=== PATIENT | female | born 1960 | race Caucasian/White ===

== ENCOUNTER → 2018-12-18 08:00 | Outpatient (CLI) | payer BC, SELFPAY ==
[2018-02-08 12:18] VITALS: BMI 30.5
--- NOTE | 2018-12-18 08:04 | BI_ITS ---
MAMMOGRAPHY - BILATERAL SCREENING REASON FOR EXAM: Female, 58 years old. Routine annual screening examination. PERTINENT HISTORY: Non-contributory. TECHNIQUE: Digital bilateral breast krissy (3D mammographic acquisition) in the CC and MLO projections. 2-D mediolateral oblique (MLO) and craniocaudad (CC) views of both breasts were obtained. CAD: Full Field Digital Mammography with Computer Added Detection was performed. COMPARISON: Comparison is made with prior study dated August 22, 2017 and August 20, 2016. FINDINGS: Breast Composition: There are scattered areas of fibroglandular density. There are no dominant masses or suspicious calcifications. Stable small benign-appearing bilateral axillary lymph nodes. No other significant abnormalities are identified. There has been no significant change since the prior study. BI/SCREENING MAMM (CAD), BILAT IMPRESSION: Stable bilateral screening mammogram. Yearly follow-up mammogram recommended. (A) ASSESSMENT CATEGORY: BIRADS Category 2: Benign. A letter regarding these results will be sent to the patient by the facility within 30 days. Approximately 10% of breast cancers are not detected by mammography. A normal mammogram should not delay biopsy of a clinically suspicious abnormality. [id number] Electronically Signed: Aaron Junior MD at 10:23 EST , Service support ,
--- NOTE | 2018-12-18 08:23 | BD_ITS ---
STUDY: DUAL ENERGY X-RAY ABSORPTIOMETRY / DXA REASON FOR EXAM: Female, 58 years old. The patient is postmenopausal. Loss of height. TECHNIQUE: Bone Mineral Density (BMD) measurements of lumbar spine and bilateral hips were obtained. COMPARISON: None. FINDINGS: Lumbar Spine (L1-L4): g/cm2 (0.946) / T-score (-1.9) / Z-score (-0.7) Findings are suggestive of osteopenia with a moderate fracture risk. Left Femur Total: g/cm2 (0.886) / T-score (-1.0) / Z-score (0.0) Left Femoral Neck: g/cm2 (0.756) / T-score (-2.0) / Z-score (-0.8) Right Femur Total: g/cm2 (0.877) / T-score (-1.0) / Z-score (-0.1) Right Femoral Neck: g/cm2 (0.785) / T-score (-1.8) / Z-score (-0.6) BD/Dexa Bone Density Study IMPRESSION: The patient is considered osteopenic as outlined below according to World Sumti Organization (WHO) criteria with a moderate fracture risk. Reference Information: The T-score is the number of standard deviations above or below the standard which is normal for young adults at their peak bone mineral density. The World Health Organization (WHO) interprets the T-scores as follows: Above -1 Normal bone density Between -1 and -2.5 Osteopenia Equal to / or below -2.5 Osteoporosis As a practical clinical guideline, osteopenia may be graded as follows: Mild -1 through -1.5 Moderate -1.6 through -2.0 Severe -2.1 through -2.4 The Z-score is the number of standard deviations above or below age-matched controls. A Z-score of less than -1.5 would be considered abnormal. References: 1. NIH Osteoporosis and Related Bone Diseases http://www.osteo.org 2. International Society for Clinical Densitometry http://www.iscd.org 3. National Osteoporosis Foundation http://www.nof.org Electronically Signed: Aaron Junior MD at 15:11 EST , Service support ,
== END ==
PROVIDERS: Family Provider Internal Medicine; PCP Internal Medicine; Referring Provider Obstetrics & Gynecology; Visit Provider Obstetrics & Gynecology
DX: N95.1 Menopausal and female climacteric states (principal); Z12.31 Encounter for screening mammogram for malignant neoplasm of breast
CPT/HCPCS: 77063; 77067; 77080

== ENCOUNTER → 2019-04-08 | Outpatient (CLI) | payer BC, SELFPAY ==
[2019-04-13 17:29] LABS: HPV Reflexed? NOT INDICATED
== END | disposition home or self-care (01) ==
LOC: LABSPEC 11:11
PROVIDERS: Visit Provider Obstetrics & Gynecology
DX: Z12.4 Encounter for screening for malignant neoplasm of cervix (principal)
CPT/HCPCS: 88175; G0145

== ENCOUNTER → 2020-01-29 | Outpatient (CLI) | payer BC, SELFPAY ==
[2020-01-29 10:29] LABS: Potassium 4.5 mmol/L (3.5-5.1)
== END | disposition home or self-care (01) ==
LOC: LABSPEC 10:09
PROVIDERS: Referring Provider Nurse Practitioner; Visit Provider Nurse Practitioner
DX: E87.5 Hyperkalemia (principal)
CPT/HCPCS: 84132

== ENCOUNTER → 2020-02-24 | Outpatient (CLI) | payer BC, SELFPAY ==
[2018-02-08 12:18] VITALS: BMI 30.5
--- NOTE | 2020-02-24 09:59 | BI_ITS ---
MAMMOGRAPHY - BILATERAL SCREENING REASON FOR EXAM: Female, 59 years old. Routine annual screening examination. PERTINENT HISTORY: Non-contributory. TECHNIQUE: Digital bilateral breast stefania (3D mammographic acquisition) in the CC and MLO projections. 2-D mediolateral oblique (MLO) and craniocaudad (CC) views of both breasts were obtained. CAD: Full Field Digital Mammography with Computer Added Detection was performed. COMPARISON: Comparison is made with prior study dated December 18, 2018 and August 22, 2017. FINDINGS: Breast Composition: There are scattered areas of fibroglandular density. There are no dominant masses or suspicious calcifications. Stable small benign-appearing bilateral axillary lymph nodes. No other significant abnormalities are identified. There has been no significant change since the prior study. BI/SCREEN MAMM (CAD) W/STEFANIA BILAT IMPRESSION: Stable bilateral screening mammogram. Yearly follow-up mammogram recommended. (A) ASSESSMENT CATEGORY: BIRADS Category 2: Benign. A letter regarding these results will be sent to the patient by the facility within 30 days. Approximately 10% of breast cancers are not detected by mammography. A normal mammogram should not delay biopsy of a clinically suspicious abnormality. [id number] Electronically Signed: Aaron Junior, at 11:07 EDT , Service support ,
== END | disposition home or self-care (01) ==
LOC: OPBI 09:56
PROVIDERS: PCP Nurse Practitioner; Referring Provider Nurse Practitioner; Visit Provider Nurse Practitioner
DX: Z12.31 Encounter for screening mammogram for malignant neoplasm of breast (principal)
CPT/HCPCS: 77063; 77067

== ENCOUNTER → 2020-06-21 | Outpatient (CLI) | payer BC, SELFPAY ==
[2018-02-08 12:18] VITALS: BMI 30.5
== END | disposition home or self-care (01) ==
LOC: LABSPEC 13:27
PROVIDERS: PCP Nurse Practitioner; Visit Provider Family Medicine Hospice and Palliative Medicine
DX: Z11.59 Encounter for screening for other viral diseases (principal)
CPT/HCPCS: 87635; 94799; U0003

== ENCOUNTER 2020-09-12 12:48 | Emergency (ER) | payer OTHER, BC, SELFPAY ==
[2020-09-12 12:49] VITALS: BP 126/76; PULSE 58; RESP 17; TEMP 36.7; O2SAT 100; BMI 27.6
--- NOTE | 2020-09-12 13:22 | RAD_ITS ---
STUDY: X-RAY - LEFT WRIST REASON FOR EXAM: Female, 59 years old. Fall, deformity TECHNIQUE: 3 view(s) of the wrist were obtained. COMPARISON: None. FINDINGS: There is a comminuted fracture of the distal radial metaphysis with evidence of a dorsal facing. Avulsion fracture of the ulnar styloid. Normal distal radioulnar articulation. Normal carpal bones. Normal carpal articulations. Normal carpometacarpal articulation of the thumb. Normal second through fifth carpometacarpal articulations. Normal visualized metacarpal bones. Soft tissue swelling. RAD/Wrist min 3 Views IMPRESSION: Comminuted fracture of the distal radial metaphysis with evidence of dorsal facing. Avulsion fracture of the ulnar styloid. Soft tissue swelling. Electronically Signed: Aaron Junior, at 14:02 EDT , Service support ,
[2020-09-12] MEDS: Bupivacaine Mpf 0.5% 30 ML VIAL INFILT (14:12)
--- NOTE | 2020-09-12 15:35 | RAD_ITS ---
STUDY: X-RAY - LEFT WRIST REASON FOR EXAM: Female, 59 years old. POST REDUCTION TECHNIQUE: 3 view(s) of the wrist were obtained. COMPARISON: 09/12/2020 at 1344 FINDINGS: Interval reduction of the Colles'' fracture the distal radius with near-anatomic alignment. Normal radiocarpal articulation. Normal distal radioulnar articulation. Normal carpal bones. Normal carpal articulations. Normal carpometacarpal articulation of the thumb. Normal second through fifth carpometacarpal articulations. Normal visualized metacarpal bones. Fiberglas cast obscures soft tissue and bony detail. RAD/Wrist min 3 Views IMPRESSION: Interval reduction of Colles'' fracture with near-anatomic alignment. Electronically Signed: Joe Capps MD at 15:56 EDT Tel , Service support ,
--- NOTE | 2020-09-12 15:48 | ED.DCSUM_ITS ---
History of Present Illness Chief Complaint: Fall Narrative: Patient presenting for evaluation secondary to mechanical fall left wrist injury. Patient reports that she was walking into work. She suffered a mechanical fall on outstretched arm. She did hit her head there is no loss of consciousness. She denies any visual changes numbness weakness nausea vomiting. She is not anticoagulated. She reports a moderate amount of pain in her left wrist as well as a minimal amount of pain in the small digit on her right hand. She is right-hand dominant. View of systems otherwise negative. Past Medical History - Allergies and Home Meds Allergies/Adverse Reactions: Allergies iodine Allergy (Verified 09/12/20 12:48) Unknown pollen extracts Allergy (Verified 09/12/20 12:48) Unknown povidone-iodine [From Betadine] Allergy (Verified 09/12/20 12:48) Unknown soap [From Betadine] Allergy (Verified 09/12/20 12:48) Unknown detergent Allergy (Uncoded 09/12/20 12:48) Unknown Primary Care Physician: Ngozi Linder CHIROPRACTIC PRACTICE MANAGER, CHIROPRACTIC PRACTICE MANAGER-C [Primary Care Provider] - Prior records reviewed: Yes Surgical History: noncontributory Smoking Status: Never smoker Review of Systems All systems negative except as indicated General: Denies: Chills, Fever, Sweats Eyes: Denies: Visual changes - bilaterally, Diplopia ENT: Denies: Rhinorrhea, Sore throat Cardiovascular: Denies: Chest pain, Palpitations Respiratory: Denies: Dyspnea, Cough, Dyspnea on exertion Gastrointestinal: Denies: Abdominal pain, Nausea, Vomiting, Diarrhea, Melena, Hematochezia Genitourinary: Denies: Dysuria, Hematuria, Frequency Musculoskeletal: Reports: Extremity Pain Skin: Denies: Rash, Wounds Neurological: Denies: Headache, Weakness, Numbness Physical Exam Vital Signs/Narrative: Vital Signs Temp Pulse Resp BP Pulse Ox 09/12/20 14:39 62 16 123/84 H 98 09/12/20 12:49 98.0 F 58 L 17 126/76 H 100 Inital Vital Signs reviewed: Yes Left Forearm: - - Deformity noted to the patient's left wrist. Normal sensation over all dermatomes. Normal pulses normal capillary refill. Limited range of motion of the wrist secondary to pain Right Hand: - - Minimal tenderness palpation of the small digit of the right hand with full range of motion no deformity. General: Well nourished, Well developed Head: Normocephalic, Atraumatic Eyes: Perrl, EOMI ENT: No Trauma, Moist Mucous Membranes Neck: Nontender, Full ROM Cardiovascular: Regular rate, Regular rhythm, No murmurs Respiratory: No distress, CTA bilaterally, Chest nontender Abdomen: Soft, Nontender, Nondistended, Normal bowel sounds Back: Nontender Skin: Normal color, No rash Neurological: Alert, Oriented x3, Cranial nerves II-XII grossly intact, Normal Strength, Normal Sensation Psychological: Normal affect Diagnostic/Tx/Re-eval - Medical Decision Making Patient presented secondary to a fall. She did hit her head but she does not meet any imaging criteria per the [place] head CT rules. Imaging of the patient's left wrist shows a displaced distal radius fracture that is intra- articular and an ulnar styloid fracture. This was reduced as noted in the procedure note. Patient requested referral to Dr. Solomon Procedures Procedure(s): Patient was verbally consented for hematoma block and closed reduction of the left wrist. Area was prepped via a alcohol pad. 21-gauge needle was utilized, blood was withdrawn, and 10 cc of bupivacaine was placed into the patient's fracture hematoma. There was good anesthesia. Traction and manipulation was then utilized, the patient was placed in a anterior posterior Ortho-Glass splint that was fabricated by the ED physician. Repeat radiographs show improved alignment. Patient tolerated this well. ED Disposition - Plan for ED Patient: Disposition: Home or Assisted Living Diagnosis: Left wrist fracture Instructions: ED WRIST FRACTURE General Prescriptions: Hydrocodone Bitart/Apap 5-325 [[place] 5MG-325MG] 1 tab PO Q6H PRN PRN 3 Days #12 tab PRN Reason: Pain Prescription Printed Referrals: Carlos Solomon DO [STAFF PHYSICIAN] - 3-5 Days
[2020-09-12 16:03] VITALS: BP 141/72; PULSE 64; RESP 15; O2SAT 97
== END 2020-09-12 16:22 | disposition home or self-care (01) ==
PROVIDERS: Emergency Provider Emergency Medicine; PCP Nurse Practitioner
DX: S52.572A Other intraarticular fracture of lower end of left radius, initial encounter for closed fracture (principal); S52.612A Displaced fracture of left ulna styloid process, initial encounter for closed fracture; W18.30XA Fall on same level, unspecified, initial encounter; Y93.01 Activity, walking, marching and hiking; Y92.89 Other specified places as the place of occurrence of the external cause; Y99.0 Civilian activity done for income or pay
CPT/HCPCS: 25605; 29125; 73110; 99283

== ENCOUNTER 2021-04-27 07:55 | Outpatient (CLI) | payer BC, SELFPAY ==
--- NOTE | 2021-04-27 07:59 | BI_ITS ---
MAMMOGRAPHY - BILATERAL SCREENING REASON FOR EXAM: Female, 60 years old. Routine annual screening examination. PERTINENT HISTORY: Non-contributory. TECHNIQUE: Digital bilateral breast stefania (3D mammographic acquisition) in the CC and MLO projections. 2-D mediolateral oblique (MLO) and craniocaudad (CC) views of both breasts were obtained. CAD: Full Field Digital Mammography with Computer Added Detection was performed. COMPARISON: Comparison is made with prior study dated 02/24/2020 and 12/18/2018. FINDINGS: Breast Composition: There are scattered areas of fibroglandular density. There are no dominant masses or suspicious calcifications. Stable small benign-appearing bilateral axillary lymph nodes. No other significant abnormalities are identified. There has been no significant change since the prior study. BI/SCRN MAMM (CAD)W/STEFANIA BILAT IMPRESSION: Stable bilateral screening mammogram. Yearly follow-up mammogram recommended. (A) ASSESSMENT CATEGORY: BIRADS Category 2: Benign. A letter regarding these results will be sent to the patient by the facility within 30 days. Approximately 10% of breast cancers are not detected by mammography. A normal mammogram should not delay biopsy of a clinically suspicious abnormality. [id number] Electronically Signed: Aaron Junior MD at 8:56 EDT , Service support ,
--- NOTE | 2021-04-27 08:25 | BD_ITS ---
STUDY: DUAL ENERGY X-RAY ABSORPTIOMETRY / DXA REASON FOR EXAM: Female, 60 years old. [id number]. The patient is postmenopausal. TECHNIQUE: Bone Mineral Density (BMD) measurements of lumbar spine and bilateral hips were obtained. COMPARISON: Comparison is made with prior examination dated 12/18/2018. FINDINGS: Lumbar Spine (L1-L4): g/cm2 (0.793) / T-score (-3.1) / Z-score (-1.7) Findings are suggestive of osteoporosis with a high fracture risk. Left Femur Total: g/cm2 (0.846) / T-score (-1.3) / Z-score (-0.2) Left Femoral Neck: g/cm2 (0.752) / T-score (-2.1) / Z-score (-0.7) Right Femur Total: g/cm2 (0.822) / T-score (-1.5) / Z-score (-0.4) Right Femoral Neck: g/cm2 (0.7-0) / T-score (-2.3) / Z-score (-0.9) The T-Scores on the most recent prior examination were: Lumbar Spine (L1-L4): There has been worsening of bone density since the previous examination. Left Femur Total: which represents a worsening of 4.5%. Right Femur Total: which represents a worsening of 6.3%. BD/Dexa Bone Density Study IMPRESSION: The patient is considered osteoporotic as outlined below according to World Sumit Organization (WHO) criteria with a high fracture risk. There has been worsening of bone density since the previous examination. Reference Information: The T-score is the number of standard deviations above or below the standard which is normal for young adults at their peak bone mineral density. The World Health Organization (WHO) interprets the T-scores as follows: Above -1 Normal bone density Between -1 and -2.5 Osteopenia Equal to / or below -2.5 Osteoporosis As a practical clinical guideline, osteopenia may be graded as follows: Mild -1 through -1.5 Moderate -1.6 through -2.0 Severe -2.1 through -2.4 The Z-score is the number of standard deviations above or below age-matched controls. A Z-score of less than -1.5 would be considered abnormal. References: 1. NIH Osteoporosis and Related Bone Diseases www osteo.org 2. International Society for Clinical Densitometry www iscd.org 3. National Osteoporosis Foundation www nof.org Electronically Signed: Aaron Junior MD at 15:50 EDT , Service support ,
== END 2021-04-27 23:59 | disposition home or self-care (01) ==
PROVIDERS: PCP Nurse Practitioner; Referring Provider Nurse Practitioner; Visit Provider Nurse Practitioner
DX: Z13.820 Encounter for screening for osteoporosis (principal); Z12.31 Encounter for screening mammogram for malignant neoplasm of breast
CPT/HCPCS: 77063; 77067; 77080

== ENCOUNTER → 2022-04-06 | Outpatient (CLI) | payer OTHER, SELFPAY ==
--- NOTE | 2022-04-06 09:11 | RAD_ITS ---
STUDY: X-RAY - PELVIS AND LEFT HIP REASON FOR EXAM: Female, 61 years old. DISCOMFORT OF LEFT GROIN TECHNIQUE: 3 views of the pelvis and hip. COMPARISON: None. FINDINGS: There is a non-specific bowel gas pattern. Normal visualized soft tissue structures. Normal bilateral iliac wings, sacroiliac joints and visualized sacrum. Normal bilateral superior and inferior pubic rami. Normal pubic symphysis. Normal bilateral ischial tuberosities. Normal visualized femoral head. Normal acetabulum. Normal hip joint. RAD/HIP, UNI W/ Pelvis 2-3 Views IMPRESSION: Normal x-ray examination of the pelvis and hip. Electronically Signed: Fuentes Carrion MD at 23:43 EDT ,
== END | disposition home or self-care (01) ==
LOC: MTRAD 09:09
PROVIDERS: PCP Internal Medicine; Referring Provider Internal Medicine; Visit Provider Internal Medicine
DX: R10.32 Left lower quadrant pain (principal)
CPT/HCPCS: 73502

== ENCOUNTER 2022-05-18 09:00 | Outpatient (RCR) | payer OTHER, SELFPAY ==
--- NOTE | 2022-04-24 08:14 | HP.PTEVAL_ITS ---
Patient's Visit Information JOSE LYON is a 61 year old F referred to Physical Therapy by Dr. Ny Alford, DO with a diagnosis of L greater trochanter bursitis/IT band pain, L groin pain. Date of Evaluation: 04/24/22 Physical Therapist: BARBARA Bright - Visit Plan Frequency: 2x /Week Duration: 6 Weeks Plan: 2X/ week for 4-6 weeks for Neutral spine core stability, stretching of the L spine in neutral spine, stretching of the L piriformis, postural exercises with HEP and modalities if needed. HEP: PT, PT with bug with legs, L piriformis stretch in supine, discussed HS stretch and SKC stretch that she is already doing at home to not go into pain. - Subjective Last April pt had a bone density scan with osteoporosis and degeneration around L4-L5 and then around Aug started to have some LBP and since then it has been a problem. She has been taken it easy. She does Yoga. She is losing flexability and before that she was extremely flexible. She started Chiropractor in . L leg is slightly shorter than R leg. Alignment was good. She was still having some back spasms upon standing when seated and the first few steps... she can always count on spams in [place]. Once she is going she can walk 5 miles with the [facility] shoes on without any problems. She did 1X/ week massage therapy in January and February and saw mild help... only helped that day. She had an appt with Dr Alford and then she prescribed her with generic celebrex and helps a little. She is also taking some herbs to help with her muscle. She is trying to refrain from taking Tylenol. In Nov and Dec she needed to take IBPROF. Dr Alford wrote the order for PT. In February she started to have some pain in the L groin and felt like losing more mobility and issues with balance. She has no N&T. She is needing more sleep due to fatigue. She can not get comforterable. SHe is now a back sleeper and can sleep or. X-ray of the L hip. - Pain Back pain Pain Intensity (Out of 10): 0 Pain Intensity Range: 2, 3 Comment: Walking L groin pain Pain Intensity (Out of 10): 2 Comment: with walking - Objective Gait: pt walks with decreased trunk rotation and smaller steps. LE MMT: B hip flex, knee ext, knee flex, hip abd 4/5 B. Pt has increase pain with end range stretching of her L hamstring, and L piriformis (L tighter than the R). Good IT band flexibility B but slight increase pain on the L. Slight pain with piriformis palpation on the L. Posture: pt sits with upright posture during treatment session today. Pt has a good understanding of PT with ab brace. - Balance/Special Test Scores Lower Extremity Functional Score: 43 - Goals Goal 1:: I HEP Goal Time Frame: 4-6 Weeks Goal 2:: Increase core stability to be able to complete 3 X 20 bug without pain and being able to hold the PT without losing it Goal Time Frame: 4-6 Weeks Goal 3:: Decrease back and groin pain to 1/10 with sit to stand transfers and with 50% less frequency. - Rehabilitation Potential Rehabilitation Potential: Good - Anticipated Interventions Patient/Client Instruction: Educate patient on: Condition, Plan of Care For the Purpose of:: To decrease pain, To increase ROM, To improve nutrient delivery to tissue, To improve muscle performance and motor function, To improve ability to perform ADL's, To increase tolerance to activity/condition/position, To improve performance and independence with ADL's, To decrease level of supervision to perform tasks, To improve ability of physical actions for home/community/work/leisure, To improve gait and locomotor functions, To improve health of tissue, To decrease soft tissue restriction, To increase flexibility/ROM, To improve balance Therapeutic Exercise to Include: Strength training, Postural training, Flexib ilty training, Gait and locomotor training, Neuromotor development, Active ROM, Dynamic Lumbar Stabilization, Scapular Strength/Stabilization For the Purpose of:: To decrease pain, To increase ROM, To improve nutrient delivery to tissue, To increase oxygenation perfusion, To improve ability to perform ADL's, To increase tolerance to activity/condition/position, To improve performance and independence with ADL's, To decrease level of supervision to perform tasks, To improve ability of physical actions for home/community/work/leisure, To improve gait and locomotor functions, To improve health of tissue, To decrease soft tissue restriction, To increase flexibility/ROM, To improve endurance, To improve balance, To improve safety with gait Cryotherapy (ice pack, ice massage): Yes Thermo therapy (hot pack): Yes For the Purpose of:: To decrease pain, To increase ROM, To improve nutrient delivery to tissue Thank you for the opportunity to evaluate your patient. For Medicare and Medicare HMO plans, please review the plan of care and approve it. It will need to be FAXED BACK to us at [phone] for Medicare purposes. For Medicare only, by signing this I certify the plan of care. Please let me know if there are questions or concerns regarding this plan of ca re. Physician Signature: Date:
--- NOTE | 2022-08-20 10:23 | HP.PTDCNRP_ITS ---
JOSE LYON was seen in my office for initial evaluation on 04/24/22. The following Plan of Care was established for this patient: Initial Frequency: 2x /Week Initial Duration: 6 Weeks Patient/Client Instruction: Educate patient on: Condition, Plan of Care For the Purpose of:: To decrease pain, To increase ROM, To improve nutrient delivery to tissue, To improve muscle performance and motor function, To improve ability to perform ADL's, To increase tolerance to activity/condition/position, To improve performance and independence with ADL's, To decrease level of supervision to perform tasks, To improve ability of physical actions for home/community/work/leisure, To improve gait and locomotor functions, To improve health of tissue, To decrease soft tissue restriction, To increase flexibility/ROM, To improve balance Therapeutic Exercise to Include: Strength training, Postural training, Flexibilty training, Gait and locomotor training, Neuromotor development, Active ROM, Dynamic Lumbar Stabilization, Scapular Strength/Stabilization For the Purpose of:: To decrease pain, To increase ROM, To improve nutrient delivery to tissue, To increase oxygenation perfusion, To improve ability to perform ADL's, To increase tolerance to activity/condition/position, To improve performance and independence with ADL's, To decrease level of supervision to perform tasks, To improve ability of physical actions for home/community/wor k/leisure, To improve gait and locomotor functions, To improve health of tissue, To decrease soft tissue restriction, To increase flexibility/ROM, To improve endurance, To improve balance, To improve safety with gait Cryotherapy (ice pack, ice massage): Yes Thermo therapy (hot pack): Yes For the Purpose of:: To decrease pain, To increase ROM, To improve nutrient delivery to tissue This patient was last seen in our office 05/18/22. Pertinent comments regarding their Physical therapy will appear below: JENNIFER PT. Pt was to call in 2 weeks to report her HEP progress and she did not do that and will be discharged at this time. At this point I will be discontinuing this patient from physical therapy. I would be happy to see this patient again in the future if found appropriate by the physician. Thank you! Angelica Cunha, MPT Balance/Gait/Functional tests - Balance/Special Test Scores Lower Extremity Functional Score: 52
== END 2022-05-18 19:00 | disposition home or self-care (01) ==
LOC: PT 09:00
PROVIDERS: PCP Internal Medicine; Referring Provider Internal Medicine; Visit Provider Internal Medicine
DX: M76.32 Iliotibial band syndrome, left leg (principal)
CPT/HCPCS: 97110; 97161

== ENCOUNTER → 2022-05-30 | Outpatient (CLI) | payer OTHER, SELFPAY ==
--- NOTE | 2022-05-30 07:04 | BI_ITS ---
MAMMOGRAPHY - BILATERAL SCREENING REASON FOR EXAM: Female, 61 years old. Routine annual screening examination. PERTINENT HISTORY: Non-contributory. TECHNIQUE: Digital bilateral breast stefania (3D mammographic acquisition) in the CC and MLO projections. 2-D mediolateral oblique (MLO) and craniocaudad (CC) views of both breasts were obtained. CAD: Full Field Digital Mammography with Computer Added Detection was performed. COMPARISON: Comparison is made with prior study dated 04/27/2021 and 02/24/2020. FINDINGS: Breast Composition: There are scattered areas of fibroglandular density. There are no dominant masses or suspicious calcifications. Stable small benign-appearing bilateral axillary No other significant abnormalities are identified. There has been no significant change since the prior study. BI/SCRN MAMM (CAD)W/STEFANIA BILAT IMPRESSION: Stable bilateral screening mammogram. Yearly follow-up mammogram recommended. (A) ASSESSMENT CATEGORY: BIRADS Category 2: Benign. A letter regarding these results will be sent to the patient by the facility within 30 days. Approximately 10% of breast cancers are not detected by mammography. A normal mammogram should not delay biopsy of a clinically suspicious abnormality. [id number] Electronically Signed: Aaron Junior MD at 8:23 EDT ,
== END | disposition home or self-care (01) ==
LOC: OPBI 07:02
PROVIDERS: PCP Internal Medicine; Referring Provider Nurse Practitioner; Visit Provider Nurse Practitioner
DX: Z12.31 Encounter for screening mammogram for malignant neoplasm of breast (principal)
CPT/HCPCS: 77063; 77067

== ENCOUNTER → 2023-09-03 | Outpatient (CLI) | payer OTHER, SELFPAY ==
--- NOTE | 2023-09-03 07:59 | BI_ITS ---
MAMMOGRAPHY - BILATERAL SCREENING REASON FOR EXAM: Female, 62 years old. Routine annual screening examination. PERTINENT HISTORY: Occasional right breast tenderness. TECHNIQUE: Digital bilateral breast stefania (3D mammographic acquisition) in the CC and MLO projections. 2-D mediolateral oblique (MLO) and craniocaudad (CC) views of both breasts were obtained. CAD: Full Field Digital Mammography with Computer Added Detection was performed. COMPARISON: Comparison is made with prior study dated May 30, 2022 and April 27, 2021. FINDINGS: Breast Composition: The breasts are almost entirely fatty. There are no dominant masses or suspicious calcifications. Stable small benign-appearing bilateral axillary lymph nodes. No other significant abnormalities are identified. There has been no significant change since the prior study. BI/SCRN MAMM (CAD)W/STEFANIA BILAT IMPRESSION: Stable bilateral screening mammogram. Yearly follow-up mammogram recommended. (A) ASSESSMENT CATEGORY: BIRADS Category 2: Benign. A letter regarding these results will be sent to the patient by the facility within 30 days. Approximately 10% of breast cancers are not detected by mammography. A normal mammogram should not delay biopsy of a clinically suspicious abnormality. [id number] Electronically Signed: Aaron Junior MD at 14:48 EDT ,
--- NOTE | 2023-09-03 08:14 | BD_ITS ---
STUDY: DUAL ENERGY X-RAY ABSORPTIOMETRY / DXA REASON FOR EXAM: Female, 62 years old. M81.0 TECHNIQUE: Bone Mineral Density (BMD) measurements of lumbar spine and bilateral hips were obtained. COMPARISON: Comparison is made with prior study dated April 27, 2021. FINDINGS: Lumbar Spine (L1-L4): g/cm2 (0.799) / T-score (-2.3) / Z-score (-0.5) Findings are suggestive of osteopenia with a high fracture risk. Left Femur Total: g/cm2 (0.749) / T-score (-1.6) / Z-score (-0.4) Left Femoral Neck: g/cm2 (0.593) / T-score (-2.3) / Z-score (-0.8) Right Femur Total: g/cm2 (0.749) / T-score (-1.6) / Z-score (-0.4) Right Femoral Neck: g/cm2 (0.594) / T-score (-2.3) / Z-score (-0.8) The T-Scores on the most recent prior examination were: Lumbar Spine (L1-L4): There has been improvement of bone density since the previous examination. Left Femur Total: which represents a worsening of 4.5. Right Femur Total: which represents a worsening of 1.6%. BD/Dexa Bone Density Study IMPRESSION: The patient is considered osteopenic as outlined below according to World Sumit Organization (WHO) criteria with a high fracture risk. There has been worsening of bone density since the previous examination. Reference Information: The T-score is the number of standard deviations above or below the standard which is normal for young adults at their peak bone mineral density. The World Health Organization (WHO) interprets the T-scores as follows: Above -1 Normal bone density Between -1 and -2.5 Osteopenia Equal to / or below -2.5 Osteoporosis As a practical clinical guideline, osteopenia may be graded as follows: Mild -1 through -1.5 Moderate -1.6 through -2.0 Severe -2.1 through -2.4 The Z-score is the number of standard deviations above or below age-matched controls. A Z-score of less than -1.5 would be considered abnormal. References: 1. NIH Osteoporosis and Related Bone Diseases www osteo.org 2. International Society for Clinical Densitometry www iscd.org 3. National Osteoporosis Foundation www nof.org Electronically Signed: Aaron Junior MD at 8:40 EDT ,
== END | disposition home or self-care (01) ==
LOC: OPBI 07:57
PROVIDERS: PCP Internal Medicine; Referring Provider Internal Medicine; Visit Provider Internal Medicine
DX: Z12.31 Encounter for screening mammogram for malignant neoplasm of breast (principal); M81.0 Age-related osteoporosis without current pathological fracture
CPT/HCPCS: 77063; 77067; 77080

== ENCOUNTER 2024-04-07 15:28 | Emergency (ER) | payer OTHER, SELFPAY ==
[2024-04-07] VITALS (8 sets, daily range): BP systolic 113–155; BP diastolic 77–110; PULSE 57–92; RESP 16–18; TEMP 36.1; O2SAT 99–100
--- NOTE | 2024-04-07 15:35 | RAD_ITS ---
STUDY: X-RAY - LEFT WRIST REASON FOR EXAM: Female, 63 years old. Trauma TECHNIQUE: 2 view(s) of the wrist were obtained. COMPARISON: None. FINDINGS: There are acute obliquely oriented fractures through the distal radial and ulnar shafts with separation, overlapping and volar angulation of fracture fragments.. There also appears to be an old unfused fracture of the ulnar styloid. Normal radiocarpal articulation. Normal distal radioulnar articulation. Normal carpal bones. Normal carpal articulations. Degenerative changes of the carpometacarpal articulation of the thumb. Normal second through fifth carpometacarpal articulations. Normal visualized metacarpal bones. The soft tissue structures are unremarkable. RAD/Wrist 2 Views IMPRESSION: Acute displaced angulated fractures of the distal radial and ulnar shafts. Electronically Signed: Adonis Joel MD at 16:23 EDT ,
[2024-04-07] MEDS: Ondansetron 4 MG/2 ML Vial IV (16:10)
--- NOTE | 2024-04-07 16:10 | RAD_ITS ---
STUDY: X-RAY - RIGHT WRIST REASON FOR EXAM: Female, 63 years old. TRAUMA TECHNIQUE: 3 view(s) of the wrist were obtained. COMPARISON: None. FINDINGS: There is an acute impacted fracture of the distal radial shaft with overlapping and mild volar angulation of fracture fragments. There is also acute fracture of the ulnar styloid with mild separation of fracture fragments. Normal radiocarpal articulation. Normal distal radioulnar articulation. Normal carpal bones. Normal carpal articulations. Normal carpometacarpal articulation of the thumb. Normal second through fifth carpometacarpal articulations. Normal visualized metacarpal bones. Mild diffuse soft tissue swelling.. RAD/Wrist min 3 Views IMPRESSION: Acute Colles'' fracture of the right wrist Electronically Signed: Adonis Joel MD at 16:36 EDT ,
--- NOTE | 2024-04-07 16:10 | RAD_ITS ---
STUDY: X-RAY - LEFT ANKLE REASON FOR EXAM: Female, 63 years old. TRAUMA TECHNIQUE: 3 view(s) of the ankle. COMPARISON: None. FINDINGS: Normal visualized distal tibia and fibula. Normal medial and lateral malleoli. Normal tibiotalar articulation and ankle mortise. Normal visualized talus. Small plantar calcaneal spur. The visualized subtalar, talonavicular, calcaneocuboid and tarsal articulations are normal. There is soft tissue swelling overlying the lateral malleolus. RAD/Ankle min 3 Views IMPRESSION: Lateral malleolus sprain. No acute fracture or dislocation Electronically Signed: Adonis Joel MD at 16:37 EDT ,
[2024-04-07] MEDS: morphine 8 MG/ML Syringe 6 MG IV ×3 (16:11→18:34)
--- NOTE | 2024-04-07 16:12 | ED.RN ---
This RN spoke with [facility] and the [facility] to let her know patient will need a drug and alcohol testing but will not be able to complete this until she is medically cleared. This RN informed her patient may need sedation and possible transfer to another facility before she is able to do testing.
--- NOTE | 2024-04-07 16:16 | EDS_ITS ---
HPI History of Present Illness HPI Narrative: Tripped and fell at work injuring both wrists and her left ankle. No head injury. No LOC. Chief Complaint: Upper Extremity Injury Informant: patient Occured/Mechanism Mechanism/Context: Yes injury and Yes blunt trauma Onset/Context/Timing Onset: Today Timing: Continuous Quality of Pain: Sharp Current Severity: Severe Maximum Severity: Severe Associated Symptoms Associated Symptoms: Positive for Loss of Funtion; Negative for Parasthesia or Weakness Narrative Narrative: 58-year-old female tripped and fell at work injuring both wrists with an open fracture of her left wrist and a prior fracture to the left wrist but did not require surgery. And also her left ankle. Tetanus Immunization: 5-10 years Prior similar symptoms: Yes Recent Illness/Hospitalization: No PFSH PFSH Medical History Anemia Home Medications ?Medication ?Instructions ?Recorded ?Last Taken ?Type Ashwaganda 09/21/13 09/21/13 History ascorbic acid (vitamin C) 500 mg mg PO 02/08/18 Unknown History capsule cholecalciferol (vitamin D3) 25 1,000 unit PO ONCE 02/08/18 Unknown History mcg (1,000 unit) capsule ferrous sulfate 325 mg (65 mg 325 mg PO TID 02/08/18 Unknown History iron) tablet (iron) multivitamin 1 cap PO QAM 02/08/18 Unknown History red yeast rice 600 mg capsule 600 mg PO QDAY 02/08/18 Unknown History vitamin B12 0.5 mg-folic acid 1 mg 1 tab PO QDAY 02/08/18 Unknown History tablet Allergy/AdvReac Type Severity Reaction Status Date / Time Environmental Allergies: Allergy Unknown NEEDS Verified 04/07/24 15:30 Uncoded FOLLOW-UP iodine Allergy Unknown Verified 04/07/24 15:30 pollen extracts Allergy Unknown Verified 04/07/24 15:30 povidone-iodine (From Allergy Unknown Verified 04/07/24 15:30 Betadine) soap (From Betadine) Allergy Unknown Verified 04/07/24 15:30 Social History (Updated 04/07/24 @ 16:24 by Elizabeth Leonard) housing: house Smoking Status: Never smoker alcohol intake: current alcohol intake frequency: a few times a week Alcohol type: beer and wine ROS ROS ED ROS Narrative Denies recent illness. Review of Systems ROS Unobtainable: Denies due to encephalopathy Constitutional Constitutional ED: Denies difficulty sleeping Eyes Eyes: Denies blurry vision ENT ENT ED: Denies dental pain Cardiovascular Cardiovascular: Denies abdominal pain Respiratory/Chest Respiratory/Chest: Denies chest congestion Gastrointestinal Gastrointestinal: Denies dry heaves Musculoskeletal Musculoskeletal: Denies difficulty walking Integumentary Denies change in hair Neurologic Neurologic: Denies abnormal speech Psychiatric Psychiatric: Denies confusion Endocrine Endocrinology: Denies cold intolerance Hematologic/Lymphatic Hematologic/Lymphatic: Denies lymphadenopathy Allergic/Immunologic Allergic/Immunologic ED: Denies mouth swelling EXAM Physical Exam Narrative Exam Narrative: 63-year-old female vital signs stable afebrile. She is sitting upright in bed. H EENT exam pupils round react to light. No signs of trauma. Neck nontender. Trachea midline. Back nontender. Lungs clear to auscultation. Heart regular rhythm rate about 60 no murmur. Chest wall and ribs nontender. Abdomen soft nontender. Lower extremities full range of motion. Mild tenderness swelling left lateral ankle. Dorsi and plantarflexion intact. Medial malleolus nontender. Achilles tendon intact. Both knees and hips are nontender. She has tenderness to her right wrist with no deformity suspect fracture. Skin is closed. Right hand is neurovascular intact with touch sensation cap refill. Right elbow upper arm and shoulder nontender. Left shoulder upper arm and elbow are nontender. Distal left forearm is an open fracture. Deformity. Palpable radial pulse. Able to wiggle her fingers minimally. Normal touch sensation. Neurologically she is awake alert with no focal motor deficits. Const Vital Signs: 04/07/24 15:28 Temperature 97 F L Temperature Source Temporal Pulse Rate 57 L Respiratory Rate 18 Blood Pressure 113/77 Blood Pressure Mean 89 Pulse Ox 100 Oxygen Delivery Method Room Air Positive well nourished, well developed, alert, oriented x3, no apparent distress, average body habitus, no limitations and healthy appearing; Negative for obese, cachectic, contractures or unkempt General Appearance ED: active, cooperative, comfortable, well kempt and well developed; Negative for unkempt, cachectic or contractures Nutritional Appearance: Negative for cachectic or obese HEENT Reports normocephalic and head/scalp atraumatic normocephalic Face and Sinus: normal facial exam Nose: external nose normal External Ear: external ears normal Eyes PERRL, EOMs intact bilaterally, conjunctivae normal and no scleral icterus General Eye ED: Yes normal appearance of both eyes Pupil: PERRL EOM: EOM abnormal Neck full ROM, No nuchal rigidity, no lymphadenopathy, supple, no meningeal signs, no JVD, No thyroid normal, No nodes and no carotid bruits Lymph Lymphatic: no lymphadenopathy noted and no lymphedema noted; Negative for lymphedema or lymphadenopathy Chest Wall inspection of chest normal Resp normal respiratory effort, normal air movement, no retractions, no use of accessory muscles, clear to auscultation bilaterally and percussion normal Effort and Inspection: able to speak in complete sentences Auscultation: clear to auscultation bilaterally Cardio regular rate, regular rhythm, S1 normal heart sound, S2 normal heart sound, no murmurs, no rub, no gallops, no clicks and peripheral pulses 2+ throughout; Negative for diaphoretic Rate: regular rate Rhythm: regular rhythm Heart Sounds: S1 normal and S2 normal GI normal to inspection, nondistended, normoactive bowel sounds, soft to palpation, non-tender, non-distended, no masses and no bruits Back/Spine no CVA tenderness, normal ROM, normal to inspection, thoracic and lumbar spine normal to inspection and no thoracic nor lumbar tenderness Extremity Negative for normal to inspection or full ROM Extremity Narrative: Right wrist tender and deformed. Skin close suspect fracture. Left wrist open fracture with deformity. Radial pulses intact. Touch sensation about the fingertips intact. Left lower extremity the ankle lateral malleolus is tender and swollen. No deformity. Normal range of motion with flexion extension left ankle. Achilles tendon intact. Able to wiggle her toes. Normal touch sensation DP pulse. Neuro oriented x3, CN's II-XII intact bilaterally, moves all extremities, no focal motor deficits and no sensory deficits noted Eduin Coma Scale: document GCS findings Spontaneous Obeys Commands Oriented 15 Sensorium / Orientation: awake, alert, oriented to person, oriented to place and oriented to time; Negative for orientation impaired, confused or lethargic Psych mental status grossly normal, thought process normal, cooperative, affect normal, speech normal and activity/motor behavior normal Appearance: Negative for unkempt Skin no rashes or lesions noted Skin Narrative: Open fracture left wrist. Bone sticking out past the skin. MDM MDM MDM Narrative Medical decision making narrative: 63-year-old female fell at work causing an open left wrist fracture, suspected right wrist fracture and the left ankle sprain suspected. X-rays being obtained. IV morphine and Zofran for pain. She was given a second dose of morphine. She will need the left wrist reduced and splinted. Possibly the right. She will have that done through procedural sedation. We do not have orthopedics on-call today. With the open fracture she will need to be transferred. All rings have been taken off her hands. She will be treated with Ancef. Last tetanus shot was between 5 and 10 years ago. Patient was initially treated with 6 mg of morphine and Zofran. Eventually received 6 mg more morphine and a third dose of 6 mg more morphine. She also had a total of 160 mg of propofol for the procedural sedation, reduction and splinting of both wrists. Currently at 5:50 PM she is awake alert. Awaiting transfer to [facility]. She had to be transferred due to no orthopedic physician on-call today and she has an open fracture of the left wrist that I suspect will need to be washed out and fixed. History & Record Review Discussion w/independent historian: Patient Additional record(s) reviewed:: Prior inpatient record, Prior outpatient record, Prior ED visit and Prior labs Radiography Diagnostic Testing: Left wrist x-ray 3 views interpreted myself shows a comminuted open fracture of the left wrist involving the distal third of the radius and ulna both displaced 100%. And shortened. Also a third fracture at the distal end of the ulna. Right wrist x-ray, 3 views interpreted by myself shows a distal radius fracture dorsally displaced. Also an ulnar styloid fracture. Left ankle x-ray shows soft tissue swelling lateral malleolus. No fracture. 3 views. Interpreted by myself. Procedures Upper Extremity Splints Upper Extremity Splint: Orthoglass Splint Fabrication: Fabricated Location: Right Procedural Sedation 1 (Initial Baseline): Consent Signed: Yes Any Problems With Anesthesia: No You/Your family experience fever (hyperthermia) w/anesthesia: No Sedation medication: Propofol Dose: 160 Total Moderate Sedation Units: 20 Maliampati Score: Class II ASA Classification: II Comment:: Patient treated with propofol. Initially 60 mg. And 40 more. Left wrist is reduced. The bone was reduced through the open fracture. She was placed in a short arm well-padded, Ortho-Glass fabricated splint by myself. That was on the left. Right wrist closed distal radius and ulnar styloid fracture. Treated with 60 more propofol. Placed in a well-padded, short arm Ortho-Glass splint. She tolerated both splints well. She awoke from procedural sedation awake alert and talking doing well. I did not get postreduction films simply because she is being transferred to [facility] and they are going to take her to the OR to washout the open fracture of the left wrist. They will get additional x-rays there. Other Procedures Procedure(s): Patient had 2 splints. 1. Left open wrist fracture short arm AP well-padded Ortho-Glass fabricated splint. 2. Right wrist closed fracture distal radius and ulnar styloid. Short arm AP well-padded Ortho-Glass fabricated splint by me. Critical Care Time Critical Care Time: Yes Critical care time (excluding procedures): 30-74 minutes, Including time spent:, Discussing w/Patient &/or Family/Outside Sales Account Representative, Discussing w/Consultants, Arranging Admission or Transfer, Performing Direct Patient Care at Bedside and - (40 minutes.) Discharge Plan Triage Chief Complaint: Upper Extremity Injury ED Provider: Shakeel Harris Dx/Rx/DC Orders Clinical Impression: Fall, Open fracture of left wrist, Closed fracture of right wrist, Left ankle sprain, Encounter related to worker's compensation claim Prescriptions: No Action multivitamin capsule 1 cap PO QAM cholecalciferol (vitamin D3) 1,000 unit capsule 1,000 unit PO ONCE ascorbic acid (vitamin C) 500 mg capsule PO ferrous sulfate [iron] 325 mg (65 mg iron) tablet 325 mg PO TID vitamin [id number] acid 0.5-1 mg tablet 1 tab PO QDAY red yeast rice 600 mg capsule 600 mg PO QDAY Ashwaganda Patient Comments: OTC MEDICATION Primary Care Provider: Ny Alford Referrals: Ny Alford DO [Primary Care Provider] - Print Language: Australian Disposition Disposition: Acute Care Hospital
[2024-04-07] MEDS: Cefazolin 1 GM/50 ML BAG IV (16:31)
--- NOTE | 2024-04-07 18:20 | RAD_ITS ---
STUDY: X-RAY - LEFT WRIST REASON FOR EXAM: Female, 63 years old. post reduction left wrist TECHNIQUE: 3 view(s) of the wrist were obtained. COMPARISON: April 07, 2024 4:08 PM FINDINGS: Films obtained status post closed reduction and casting of distal radial and ulnar fractures] demonstrated acute displaced fractures of the distal radial and ulnar shafts with persistent displacement of the fracture fragments but in more near-anatomic alignment and position RAD/Wrist min 3 Views IMPRESSION: Status post closed reduction and casting of distal radial and ulnar fractures Electronically Signed: Adonis Joel MD at 19:00 EDT Reading Location ID and State: [facility] / ID Tel , Service support ,
--- NOTE | 2024-04-07 18:21 | ED.RN ---
Due to a glitch in the [employer] EMR system, the preprocedural, procedural and post procedural documentation was lost. As well as the MAR documentation. Dr. Harris administered a total on 160mg of Diprivan IV during the procedural. The preprocedure, procedural and post procedural document was entered in per the best of my recollection.
== END 2024-04-07 18:25 | disposition short-term general hospital (02) ==
PROVIDERS: Emergency Provider Emergency Medicine; PCP Internal Medicine; Visit Provider Emergency Medicine
DX: S52.502B Unspecified fracture of the lower end of left radius, initial encounter for open fracture type I or II (principal); S93.492A Sprain of other ligament of left ankle, initial encounter; S52.531A Colles' fracture of right radius, initial encounter for closed fracture; S52.232B Displaced oblique fracture of shaft of left ulna, initial encounter for open fracture type I or II; W01.0XXA Fall on same level from slipping, tripping and stumbling without subsequent striking against object, initial encounter; Y99.0 Civilian activity done for income or pay
CPT/HCPCS: 25685; 29125; 73100; 73110; 73610; 96365; 96366; 96375; 96376; 99152; 99284; J7030; A4216; J2405

== ENCOUNTER 2024-07-14 07:30 | Outpatient (RCR) | payer OTHER, SELFPAY ==
--- NOTE | 2024-05-15 09:21 | HP.OTEVAL_ITS ---
Patient's Visit Information Visit Information Visit Information: JOSE LYON is a 63 year old F, referred to Occupational Therapy by JEREL RYAN, with a diagnosis of open fracture of shaft of L radius with ulna, closed fracture of distal R r. Date of Evaluation: 05/15/24 Occupational Therapist: Merna Day Subjective Subjective: pt with open fx of L ulna, L radius, R radius following fall at work. closed reduction in ER for L ulna as this was an open fracture and transferred to [facility] in [place] for ORIF. pt with plate in L radius and pinned the L ulna, top of R radius also fractured and plate was placed in R radius. date of sx 04/08/2024, DOI 04/07/24. s/p 5 weeks 2 days. 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 pt is able to type, but is not back to work yet. difficulty to pronate with L forearm which is causing her to compensate at elbow when typing for proper positioning. possibly starting back next Saturday at half days. is able to care for herself at home at a slowed pace. pt lives alone however partner has been able to help her as he lives close. max difficulty to open twist tops on bottles. allergic to adhesives Pain R wrist: Current Pain Intensity: 0 Pain Intensity Range: 5 L wrist: Current Pain Intensity: 0 Pain Intensity Range: 5 Objective Objective/Observation: mild redness noted at distal and proximal ends of scar on R radius however pt stating she notices festering stitch 3 days ago and she removed them herself and has applied antibiotic ointment per dr recommendation and has been healing up without increased pain. pt reporting increased sensitivity along R radius scar as compared to both scars on L. pt tolerating scar mtg techniques well. ROM Shoulder: WFL Elbow: WFL Forearm: R pro 70 sup 85, L pro 60 sup 70 Wrist: R WE 45 [address], L WE 55 [address]F [address] 15 CMC: WFL MP: WFL IP: WFL Radial Abduction: WFL Palmar Abduction: WFL Opposition: B 10 Strength Pool Installer: R 7#, L 20# Lateral Pinch: R 9#, L 12# Tripod Pinch: R 4#, L 8# Nine Hole Peg Right: 18 Left: 20 In-Hand Manipulation Finger to Palm Translation: Mild - Right and Normal - Left Palm to Finger Translation: Mild - Right and Normal - Left Quick DASH-Disab of Arm,Shoulder& Hand Quick DASH Score: 72.5000 Goals Goal:: pt to demo improved B head end desizing machine operator strength by 20# at discharge to improve head end desizing machine operator on house hold items Goal:: pt to demo improved B WF/WE by 20' by dc to manipulate household items indep Goal:: pt to demo improved B pronation by 15* for improved ability to type on the keyboard to return to work with PLOF Goal:: Pt to demo improved L supination by 15* in order to perform household task with ease using L as helper hand. Goal:: pt to demo improved B lateral pinch strength by 4# for stronger grasp on items for manipulation Goal:: pt to demo improved B tripod pinch strength by 3# for stronger head end desizing machine operator on small objects to reduce dropping. Goal:: pt to demo good carryover of HEP and scar mtg techniques to promote adequate healing and rehab potential. Goal:: pt to demo overall reduced DASH score by 25 points at dc for improved overall indep at home since pt lives alone. Rehabilitation General Assessment: Pt presenting this date with L radius and ulnar fracture and R radius fracture s/p fall at work on 04/07/24. Pt is 5 weeks 2 days post op ORIF of B radius, pt had closed reduction of L radius at ER with pins the following day. Pt presenting with reduced AROM in B wrists/forearms in all planes of motion along with reduced B head end desizing machine operator/pinch strength. pt demo good tolerance to initiating scar mtg and no noted residual swelling in digits or hands. good FMC to complete tasks using pinch grasp, however, difficulty with in hand manipulation F<>P translation d/t difficulty with motion of forearm. Pt would benefit from skilled OT services x2/week for 6-8 weeks for improved mobility, strength, and FMC to improve indep in ADL/IADL/work tasks. pt has already been completing AROM for shoulder/elbow and digits. Rehabilitation Potential: Good Anticipated Interventions Anticipated Interventions: A/AAROM/PROM, Strengthening, Scar Care, Massage, Triggerpoint Release, Desensitization and Fine Motor Coord/Elbert Visit Plan Frequency: 2x /Week Duration: 6-8 weeks General Plan: x2/week for 6-8 weeks for AROM/AAROM/PROM, scar mgt, strengthening TEXT: Thank you for the opportunity to evaluate your patient. For Medicare and Medicare HMO plans, please review the plan of care and approve it. It will need to be FAXED BACK to us at [phone] for Medicare purposes. Please let me know if there are questions or concerns regarding this plan of care. Physician Signature: Date:
--- NOTE | 2024-06-04 16:32 | HP.OTREVAL ---
Re-Evaluation Intro: JEREL RYAN, It has been my pleasure to treat JOSE LYON over the last 7 visits for open fracture of shaft of L radius with ulna, closed fracture of distal R r. Please see the progress note below for an update on the occupational therapy plan of care! Subjective Subjective: arrives doing well now 8 weeks out from sx date Objective Objective/Function: L 40 pounds R 25 pounds lateral pinch L 15 pounds R 14 pounds tripod pinch L and R 8 pounds L wrist 70/45 R wrist 65/30 supination WFL Plan Plan Frequency: 2x /Week Duration: 6-8 weeks Visits in this POC: 12-16 Plan: initiate BTE light resistive Goals Goals Patient Goals: Regain Mobility, Regain Strength, Decrease Pain, Return to Work, Improve Fine Motor Skills, Use Hand/Wrist/Arm Normally Again, Increase ROM, Be More Independent in ADLS, Resume Former Household Responsibilities (Cooking,Cleaning,Yard, etc.) and Resume Hobbies Goal:: pt to demo improved B equipment service technician strength by 20# at discharge to improve equipment service technician on house hold items L 40 R 25 GOAL MET Goal:: pt to demo improved B WF/WE by 20' by dc to manipulate household items indep ongoing Goal:: pt to demo improved B pronation by 15* for improved ability to type on the keyboard to return to work with PLOF GOAL MET Goal:: Pt to demo improved L supination by 15* in order to perform household task with ease using L as helper hand. GOAL MET Goal:: pt to demo improved B lateral pinch strength by 4# for stronger grasp on items for manipulation progressing currently L 15 R 14 pounds Goal:: pt to demo improved B tripod pinch strength by 3# for stronger equipment service technician on small objects to reduce dropping. progressing R * and L 8 pounds Goal:: pt to demo good carryover of HEP and scar mtg techniques to promote adequate healing and rehab potential. GOAL MET Goal:: pt to demo overall reduced DASH score by 25 points at dc for improved overall indep at home since pt lives alone. down by 22 points now at 54.54 Anticipated Interventions Anticipated Interventions Anticipated Interventions: A/AAROM/PROM, Strengthening, Scar Care, Massage, Triggerpoint Release, Desensitization and Fine Motor Coord/Elbert Re-Evaluation Ending Re-evaluation ending: Please do not hesitate to contact me at [phone] by phone or if you have questions or concerns regarding this new plan of care! Sincerely, Valery Lazo
--- NOTE | 2024-07-14 13:28 | HP.OTDCSUM ---
Discharge Summary D/C Summary: It has been my pleasure to treat JOSE LYON under orders from JEREL RYAN, for the diagnosis of open fracture of shaft of L radius with ulna, closed fracture of distal R r for a total of 16 visit(s). Please see the following information for a summary of their discharge status. Overall Improvement % Improvement: 80 Objective Objective/Function: L wrist 65/ 55 R wrist 65/30 ( no change and the limited flexion does limit use of right hand for personal care cleaning) using left right medicine assistant strength 35# left 55# right lateral pinch 16# left 15# right tripod pinch 12# left 14# right shoulder flex 12.1# left 12.4# biceps right 15# left 15.8# triceps right 15.5# left 9# pt making good gains with her strength. pt to continue with HEP and verbalized intent to start a health and wellness program. Goals Patient Goals: Regain Mobility, Regain Strength, Decrease Pain, Return to Work, Improve Fine Motor Skills, Use Hand/Wrist/Arm Normally Again, Increase ROM, Be More Independent in ADLS, Resume Former Household Responsibilities (Cooking,Cleaning,Yard, etc.) and Resume Hobbies Goal:: pt to demo improved B medicine assistant strength by 20# at discharge to improve medicine assistant on house hold items L 40 R 25 GOAL MET Goal:: pt to demo improved B WF/WE by 20' by dc to manipulate household items indep ongoing (goal met) Goal:: pt to demo improved B pronation by 15* for improved ability to type on the keyboard to return to work with PLOF GOAL MET Goal:: Pt to demo improved L supination by 15* in order to perform household task with ease using L as helper hand. GOAL MET Goal:: pt to demo improved B lateral pinch strength by 4# for stronger grasp on items for manipulation progressing currently L 15 R 14 pounds (goal met) Goal:: pt to demo improved B tripod pinch strength by 3# for stronger medicine assistant on small objects to reduce dropping. progressing R * and L 8 pounds (goal met) Goal:: pt to demo good carryover of HEP and scar mtg techniques to promote adequate healing and rehab potential. GOAL MET Goal:: pt to demo overall reduced DASH score by 25 points at dc for improved overall indep at home since pt lives alone. down by 22 points now at 54.54 Goal Met Plan Plan: D/C with HEP- pt agrees to POC. D/C Information Discharge Comments: pt ready to be discharged at this time. pt has tolerated therapy well and made significant gains with ROM, strength, and I in ADLs, work, daily functional activities. pt to continue with health and wellness program. pt agrees to POC. d/c sentence: If there are questions or concerns regarding this patient's occupational therapy, please fell free to call me at [phone]. Thank you for the referral of this patient. Sincerely, Ness Dalton, OTR/L, CHT
== END 2024-07-14 13:38 | disposition home or self-care (01) ==
LOC: OT 07:30
PROVIDERS: PCP Internal Medicine
DX: S52.302D Unspecified fracture of shaft of left radius, subsequent encounter for closed fracture with routine healing (principal); S52.571D Other intraarticular fracture of lower end of right radius, subsequent encounter for closed fracture with routine healing
CPT/HCPCS: 97035; 97110; 97140; 97165; 97530

== ENCOUNTER → 2024-09-04 | Outpatient (CLI) | payer OTHER, SELFPAY ==
--- NOTE | 2024-09-04 08:02 | BI_ITS ---
MAMMOGRAPHY - BILATERAL SCREENING REASON FOR EXAM: Female, 63 years old. Routine annual screening examination. PERTINENT HISTORY: Non-contributory. TECHNIQUE: Digital bilateral breast stefania (3D mammographic acquisition) in the CC and MLO projections. 2-D mediolateral oblique (MLO) and craniocaudad (CC) views of both breasts were obtained. CAD: Full Field Digital Mammography with Computer Added Detection was performed. COMPARISON: Comparison is made with prior study September 03, 2023 and May 30, 2022. FINDINGS: Breast Composition: The breasts are almost entirely fatty. There are no dominant masses or suspicious calcifications. Stable benign-appearing bilateral axillary lymph nodes. No other significant abnormalities are identified. There has been no significant change since the prior study. BI/SCRN MAMM (CAD)W/STEFANIA BILAT IMPRESSION: Stable bilateral screening mammogram. Yearly follow-up mammogram recommended. (A) ASSESSMENT CATEGORY: BIRADS Category 2: Benign. A letter regarding these results will be sent to the patient by the facility within 30 days. Approximately 10% of breast cancers are not detected by mammography. A normal mammogram should not delay biopsy of a clinically suspicious abnormality. [id number] Electronically Signed: Aaron Junior MD at 9:21 EDT ,
== END | disposition home or self-care (01) ==
LOC: OPBI 08:02
PROVIDERS: PCP Internal Medicine; Referring Provider Internal Medicine; Visit Provider Internal Medicine
DX: Z12.31 Encounter for screening mammogram for malignant neoplasm of breast (principal)
CPT/HCPCS: 77063; 77067

== ENCOUNTER → 2025-09-06 | Outpatient (CLI) | payer OTHER, SELFPAY ==
--- NOTE | 2025-09-06 10:44 | BI_ITS ---
EXAM: SCRN MAMM (CAD)W/STEFANIA BILAT DATE: 09/06/2025 CLINICAL HISTORY: F, Age 64 y/o , SCREENING Routine yearly screening mammography. TECHNIQUE: Procedure Code: [id number] Modality: MG Procedure: SCRN MAMM (CAD)W/STEFANIA BILAT COMPARISON: Prior exam(s) dated 09/04/2024 and 09/03/2023. FINDINGS: TISSUE DENSITY: The breasts are almost entirely fatty. Bilateral Breast Mammographic Findings: No significant masses, calcifications or other abnormalities are identified. Benign round microcalcifications are seen in both breasts. BI/SCRN MAMM (CAD)W/STEFANIA BILAT IMPRESSION: Benign screening mammogram OVERALL FINAL ASSESSMENT BI-RADS 2: BENIGN RECOMMENDATION: Routine annual follow-up in 1 Year Additional Recommendation none A letter with findings and recommendations will be mailed to the patient. Reading Location: [id number]
--- NOTE | 2025-09-06 10:44 | BI_ITS ---
EXAM: SCRN MAMM (CAD)W/STEFANIA BILAT DATE: 09/06/2025 CLINICAL HISTORY: F, Age 64 y/o , SCREENING Routine yearly screening mammography. TECHNIQUE: Procedure Code: [id number] Modality: MG Procedure: SCRN MAMM (CAD)W/STEFANIA BILAT COMPARISON: Prior exam(s) dated 09/04/2024 and 09/03/2023. FINDINGS: TISSUE DENSITY: The breasts are almost entirely fatty. Bilateral Breast Mammographic Findings: No significant masses, calcifications or other abnormalities are identified. Benign round microcalcifications are seen in both breasts. BI/SCRN MAMM (CAD)W/STEFANIA BILAT IMPRESSION: Benign screening mammogram OVERALL FINAL ASSESSMENT BI-RADS 2: BENIGN RECOMMENDATION: Routine annual follow-up in 1 Year Additional Recommendation none A letter with findings and recommendations will be mailed to the patient. Reading Location: [id number]
== END | disposition home or self-care (01) ==
LOC: OPBI 10:43
PROVIDERS: PCP Internal Medicine; Referring Provider Nurse Practitioner Family; Visit Provider Nurse Practitioner Family
DX: Z12.31 Encounter for screening mammogram for malignant neoplasm of breast (principal)
CPT/HCPCS: 77063; 77067